=== PATIENT | male | born 1965 | race Two or more races ===

== ENCOUNTER 2017-02-04 11:40 | Emergency (ER) | payer MEDICAID, OTHER ==
[~2017-02-04] VITALS: Ht 172.7 cm; Wt 83.9 kg
[2017-02-04 12:05] VITALS: BP 108/74
--- NOTE | 2017-02-04 14:14 | NUR ---
PT AMBULATED TO ER BED #3.
[2017-02-04] MEDS ORDERED: DEXAMETHASONE 4 MG/ML VIAL PO ONE (14:15)
[2017-02-04] MEDS ORDERED: METHOCARBAMOL 500 MG TAB PO ONE (14:15)
[2017-02-04] MEDS ORDERED: KETOROLAC 30 MG/ML VIAL IM ONE (14:15)
--- NOTE | 2017-02-04 14:15 | NUR ---
51/M PRESENT TO ER C/O BACK PAIN x 3 DAYS. PAIN 5/10 ACHING NON-RADIATING. DENIES INJURY OR TRAUMA. NO URINARY PROBLEMS STATED. AAOx4, PERRLA, BREATHING EVEN AND UNLABORED. ERMD NOTIFIED OF PATIENT STATUS.
--- NOTE | 2017-02-04 14:16 | NUR ---
Patient being evaluated by physician at bedside.
--- NOTE | 2017-02-04 14:46 | NUR ---
Patient discharged with v/s stable. Written and verbal after care instructions given and explained. Patient alert, oriented and verbalized understanding of instructions. Ambulatory with steady gait. All questions addressed prior to discharge. ID band removed. Patient advised to follow up with PMD. Rx of MOTRIN 600MG AND ROBAXIN 500MG given. Patient educated on indication of medication including possible reaction and side effects. Opportunity to ask questions provided and answered.
[2017-02-04 14:47] VITALS: BP 108/74
== END 2017-02-04 14:46 | disposition home or self-care (01) ==
LOC: MED 11:40
DX: S33.8XXA Sprain of other parts of lumbar spine and pelvis, initial encounter (principal); X50.0XXA Overexertion from strenuous movement or load, initial encounter; Y93.89 Activity, other specified; Y92.89 Other specified places as the place of occurrence of the external cause; Y99.8 Other external cause status
CPT/HCPCS: 81001; 96372; 99283; J1100; J1885

== ENCOUNTER 2022-02-22 13:27 | Emergency (ER) | payer MEDICAID, OTHER ==
[~2022-02-22] VITALS: Ht 170.2 cm; Wt 81.6 kg
[2022-02-22 13:32] VITALS: BP 123/72
--- NOTE | 2022-02-22 13:45 | NUR ---
56 Y/O MALE BIB SELF C/O L SIDE GROIN PAIN X5 DAYS. PT DENIES TRAUMA. PT STATES HE WAS TOLD HE HAD A HERNIA. PT DENIES DYSURIA, HEMATURIA OR TESTICULAR PAIN. PT DENIES FEVER OR CHILLS. PT DENIES CHEST PAIN, SOB. PT ALERT AND ORIENTED X4. VSS. LUNG SOUNDS CTA. BED LOCKED IN LOWEST POSITION. BED RAILX1. PMH: HERNIA NKA
[2022-02-22] MEDS ORDERED: IBUP-2213 PO (15:09)
[2022-02-22] MEDS ORDERED: TRAM50TA3 PO (15:09)
--- NOTE | 2022-02-22 16:08 | NUR ---
Patient discharged with v/s stable. Written and verbal after care instructions given and explained. Patient alert, oriented and verbalized understanding of instructions. Ambulatory with steady gait. All questions addressed prior to discharge. ID band removed. Patient advised to follow up with PMD. Rx of IBUPROFEN, TRAMADOL given. Patient educated on indication of medication including possible reaction and side effects. Opportunity to ask questions provided and answered.
== END 2022-02-22 16:08 | disposition home or self-care (01) ==
LOC: MED 13:27
DX: K40.90 Unilateral inguinal hernia, without obstruction or gangrene, not specified as recurrent (principal); R03.0 Elevated blood-pressure reading, without diagnosis of hypertension; Z79.891 Long term (current) use of opiate analgesic; Z79.1 Long term (current) use of non-steroidal anti-inflammatories (NSAID)
CPT/HCPCS: 81002; 99283